=== PATIENT | male | born 1965 | race Native Hawaiian/Other Pacific Islander ===

== ENCOUNTER 2023-04-16 07:58 | Outpatient (CLI) | payer OTHER | END 2023-04-16 19:08 | disposition home or self-care (01) | LOC: CT 07:58 | PROVIDERS: ATTEND Nurse Practitioner Family | DX: E78.2 Mixed hyperlipidemia (principal); R42 Dizziness and giddiness | CPT/HCPCS: 93005 ==

== ENCOUNTER 2023-05-14 15:28 | Outpatient (CLI) | payer OTHER | END 2023-05-14 20:49 | disposition home or self-care (01) | LOC: RAD 15:28 | PROVIDERS: ATTEND Nurse Practitioner Family | DX: M17.12 Unilateral primary osteoarthritis, left knee (principal) ==

== ENCOUNTER 2023-05-29 13:18 | Outpatient (CLI) | payer OTHER | END 2023-05-29 19:27 | disposition home or self-care (01) | LOC: MRI 13:18 | PROVIDERS: ATTEND Orthopaedic Surgery | DX: S83.231A Complex tear of medial meniscus, current injury, right knee, initial encounter (principal); Y92.89 Other specified places as the place of occurrence of the external cause ==